=== PATIENT | female | born 1965 | race Caucasian/White ===

== ENCOUNTER 2019-06-20 16:06 | Emergency (ER) | payer MEDICARE, OTHER ==
[~2019-06-20] VITALS: Ht 167.6 cm; Wt 72.6 kg
--- NOTE | 2019-06-20 16:11 | NUR ---
BOBO RA 62 [facility] "STAFF NOTICED HER GOING TO BEDROOM FOR AN EXTENDED PERIOD OF TIME, CAME OUT NOT ACTING NORMAL, ADMITS TO USING METH/HEROIN." TO ER BED 11, HOOKED TO MONITOR, CHANGED TO HOSP GOWN, WARM BLANKET PROVIDED. DR CRUZ AT BEDSIDE
[2019-06-20] MEDS ORDERED: RISP0.2515 PO (16:32)
[2019-06-20] MEDS ORDERED: DIVA-78 PO (16:32)
--- NOTE | 2019-06-20 17:49 | NUR ---
PATIENT ABLE TO AMBULATE GOING TO RESTROOM WITH STEADY GAIT
--- NOTE | 2019-06-20 19:47 | NUR ---
REPORT GIVEN TO NIKOLAY LEIGH FOR HANK
--- NOTE | 2019-06-20 19:47 | NUR ---
REPORT RECEIVED FORM NIKOLAY LEIGH FOR [facility]
--- NOTE | 2019-06-20 19:48 | NUR ---
REPORT RECEIVED FROM LU ELLER FOR HANK
--- NOTE | 2019-06-20 19:56 | NUR ---
[facility] ETA 01:30. TRIP # [id number]
--- NOTE | 2019-06-20 21:44 | NUR ---
Patient is resting comfortably in bed with eyes closed. Easily aroused. VSS
--- NOTE | 2019-06-20 22:18 | NUR ---
REPORT GIVEN TO EMS
--- NOTE | 2019-06-20 22:26 | NUR ---
REPORT GIVEN TO MICA MENDOZA
--- NOTE | 2019-06-20 22:27 | NUR ---
PT STABLE FOR TRANSFER
[2019-06-20 22:35] VITALS: BP 117/67
== END 2019-06-20 22:36 ==
LOC: ER 16:08
DX: F15.10 Other stimulant abuse, uncomplicated (principal); F32.9 Major depressive disorder, single episode, unspecified; Z79.899 Other long term (current) drug therapy

== ENCOUNTER 2021-02-05 12:29 | Emergency (ER) | payer MEDICARE, OTHER ==
[~2021-02-05] VITALS: Ht 172.7 cm; Wt 59.0 kg
[~2021-02-05 12:29] MED LIST: DIVA-78 PO; RISP0.2515 PO
--- NOTE | 2021-02-05 13:20 | NUR ---
[id number], BLUNGER LOADER CALLED 911. PT WAS AGITATED, ANXIOUS S/P METH USEPT IS REQUESTING "DETOX" PATIENT A/OX4, BREATHING EVEN AND UNLABORED, VERBALLY RESPONSIVE, NO DISTRESS NOTED.
--- NOTE | 2021-02-05 13:45 | NUR ---
urine and covid sent to lab.
[2021-02-05 13:54] LABS: BASOPHILS % (AUTO) 0.3 % (0.0-2.0); HEMATOCRIT 34 % (33-45); HEMOGLOBIN 11.8 g/dL (11.5-14.8); LYMPHOCYTES # (AUTO) 1.3 K/uL (0.8-4.8); LYMPHOCYTES % (AUTO) 14.8 % (20.0-44.0); MEAN CORPUSCULAR HGB CONC 35 g/dl (31.0-36.0); MEAN CORPUSCULAR VOLUME 95 fL (82-100); MONOCYTES # (AUTO) 0.5 K/uL (0.1-1.30); MONOCYTES % (AUTO) 6.2 % (2.0-12.0); NEUTROPHILS # (AUTO) 6.7 K/uL (1.8-8.9); NEUTROPHILS % (AUTO) 78.7 % (43.0-81.0); PLATELET COUNT (AUTO) 463 K/uL (150-450); RED BLOOD CELL COUNT(AUTO) 3.54 MIL/uL (4.0-5.2); WHITE BLOOD COUNT (AUTO) 8.5 K/uL (4.3-11.0)
[2021-02-05 14:07] LABS: BILIRUBIN,URINE MODERATE (NEGATIVE); COLOR,URINE AMBER (YELLOW); LEUKOCYTE ESTERASE ,URINE TRACE (NEGATIVE); NITRITE, URINE POSITIVE (NEGATIVE); PROTEIN,URINE 30 mg/dl (NEGATIVE); UGLUCOSE 100 MG/DL mg/dL (NEGATIVE)
[2021-02-05 14:07] LABS: ACETAMINOPHEN 0 ug/ml (10-30); ALANINE AMINOTRANSFERASE 24 U/L (12-78); ALBUMIN 3.8 g/dL (3.4-5.0); ALCOHOL, BLOOD < 3 mg/dL (0-0); ALKALINE PHOSPHATASE 79 U/L (46-116); ASPARTATE AMINOTRANSFERASE 32 U/L (15-37); BILIRUBIN,DIRECT 0.4 mg/dL (0.0-0.2); BILIRUBIN,TOTAL 1.1 mg/dL (0.2-1.0); CALCIUM, SERUM 9.5 mg/dL (8.5-10.1); CARBON DIOXIDE 25 mmol/L (21-32); CHLORIDE 103 mmol/L (98-107); GLUCOSE 113 mg/dL (74-106); POTASSIUM 3.6 mmol/L (3.5-5.1); SODIUM SERUM 141 mmol/L (136-145); TOTAL PROTEIN, SERUM 7.2 g/dL (6.4-8.2); UREA NITROGEN, BLOOD 11 mg/dL (7-18)
[2021-02-05 14:17] LABS: BACTERIA,URINE Many /HPF (None Seen); RBC,URINE 0-2 /HPF (0-2); SQUAMOUS EPITHELIAL CELL,UR Moderate /HPF (None Seen)
[2021-02-05] MEDS ORDERED: DIVALPROEX SODIUM 500 MG TABLET.DR PO ONE ×2 (14:24→15:00)
[2021-02-05] MEDS ORDERED: LORAZEPAM INJ 2 MG/ML VIAL ONE (14:24)
--- NOTE | 2021-02-05 14:24 | NUR ---
PAGED FUR SORTER FOR PT.
--- NOTE | 2021-02-05 14:25 | NUR ---
PATIENT CAME UP TO NURSING STATION AND ASKED FOR A DEPAKOTE, PATIENT IS HYPERVERBAL. PINFORMED DR. ALVAREZ AND RECEIVED ORDER FOR A DEPAKOTE 500MG AND ATIVAN 2MG IM X1.
--- NOTE | 2021-02-05 14:50 | NUR ---
SS note: SS notified Murtaza LEIGH to contact on-call speech and language clinician to evaluate the pt when she is medically clear. Murtaza LEIGH to f/u at a later time.
[2021-02-05] MEDS ORDERED: LORAZEPAM INJ 2 MG/ML VIAL IM ONE (15:00)
[2021-02-05] MEDS ORDERED: diphenhydrAMINE HCL 50 MG/ML VIAL IM ONE (16:00)
[2021-02-05] MEDS ORDERED: diphenhydrAMINE HCL 50 MG/ML VIAL ONE (16:02)
--- NOTE | 2021-02-05 16:29 | NUR ---
PATIENT ASLEEP. BUT EASILY AROUSABLE. NO DISTRESS NOTED.
[2021-02-05] MEDS ORDERED: CEPHALEXIN MONOHYDRATE 500 MG CAPSULE PO SCH (17:00)
--- NOTE | 2021-02-05 17:00 | NUR ---
SS consult: SS requested for pt presenting agitated and anxious. Pt is a 55-year-old, female. SW met with pt at her bedside in the emergency department. Pt presented laying on her bed and was receptive to meeting with SW. Pt appears well-groomed. Pt presents with a labile mood. Pt is irritable, agitated and verbally aggressive. Pt stated that she was previously living at a sober living facility and left because she "had an attitude." Pt was unable to provide SW with a meaningful history. Pt had to be continuously redirected. Pt stated that she has been recently using methamphetamine and "had a couple of drinks." Pt was increasingly fixated on her recent substance use, stating that substances amplify her sx of Bipolar. Pt reported hx of Bipolar Disorder and Depression. Pt stated that she has not recently taken psychiatric medication but took medication months ago. Pt denied hallucinations. Pt denied SI/HI. PLAN: Pt's appears to be unable to care for self and SW to notify ED nursing staff to contact personnel research psychologist for safe D/C planning and possible hold. Addendum: 02/05/21 at 1713 by GAYATHRI GEE late entry for [id number]
--- NOTE | 2021-02-05 17:21 | NUR ---
PATIENT TOO SLEEPY, RISK FOR ASPIRATION, UNABLE TO GIVE PO MEDICATION AT THIS TIME. WILL TRY LATER.
[2021-02-05] MEDS ORDERED: CEPHALEXIN MONOHYDRATE 500 MG CAPSULE PO ONE (17:40)
--- NOTE | 2021-02-05 17:51 | NUR ---
ABLE TO WAKE UP PATIENT TO TAKE MEDICATION. HOB ELEVATED AND TOLERATED PO PILL.
--- NOTE | 2021-02-05 18:35 | NUR ---
Patient resting, no distress noted. Needs attended.
--- NOTE | 2021-02-06 05:30 | NUR ---
pt ok to discharge per dr moseley. Patient discharged to home in stable condition. Written and verbal after care instructions given. Patient verbalizes understanding of instruction.Patient is awake and alert to self, day, and place. pt ambulatory with a steady gait
[2021-02-06 06:09] VITALS: BP 110/65
== END 2021-02-06 06:09 | disposition home or self-care (01) ==
LOC: ER 12:33
DX: F15.10 Other stimulant abuse, uncomplicated (principal); N39.0 Urinary tract infection, site not specified; R45.1 Restlessness and agitation; F31.9 Bipolar disorder, unspecified; F41.9 Anxiety disorder, unspecified; Z20.822 Contact with and (suspected) exposure to COVID-19
CPT/HCPCS: 36415; 80048; 80076; 80143; 80307; 80320; 81001; 85025; 87086; 87426; 96372 ×2; 99284; J1200; J2060; C9803; G0480

== ENCOUNTER 2021-07-14 17:37 | Emergency (ER) | payer MEDICARE, OTHER ==
[~2021-07-14] VITALS: Ht 170.2 cm; Wt 65.8 kg
--- NOTE | 2021-07-14 19:15 | NUR ---
[id number]. TO ER BED 14. AAOX4. NOT IN RESP DISTRESS. AMBUALTORY. BROUGHT IN FOR FEELING DEPRESSED AND ANXIOUS. PER PT SHE DID METH. PT IS REQUESTING TO HAVE HER MEDICATION, DEPAKOTE. PT DENIES ANY SI NOR HI. DENIES HALLUCINATIONS BOTH VISUAL AND AUDITORY. AWAITING MD FOR EVAL.
[2021-07-14] MEDS ORDERED: DIVALPROEX SODIUM 500 MG TABLET.DR PO ONE ×2 (19:30→19:59)
[2021-07-14] MEDS ORDERED: DIVA500T2 PO (19:48)
--- NOTE | 2021-07-15 00:01 | NUR ---
Patient discharged to home in stable condition. Written and verbal after care instructions given. Patient verbalizes understanding of instruction. PT ambulatory with a steady gait
[2021-07-15 01:09] VITALS: BP 138/82
== END 2021-07-15 00:02 | disposition home or self-care (01) ==
LOC: ER 17:40
DX: F30.9 Manic episode, unspecified (principal); F19.229 Other psychoactive substance dependence with intoxication, unspecified; Z79.899 Other long term (current) drug therapy

== ENCOUNTER 2024-02-13 15:50 | Inpatient (IN) | payer MEDICARE, OTHER ==
[~2024-02-13] VITALS: Ht 165.1 cm; Wt 66.7 kg
[~2024-02-13 15:50] MED LIST changes: +DIVA500T2 PO
[2024-02-13 16:51] LABS: BASOPHILS # (AUTO) 0.1 K/uL (0.0-0.2); BASOPHILS % (AUTO) 0.4 % (0.0-2.0); HEMATOCRIT 40 % (33-45); HEMOGLOBIN 13.6 g/dL (11.5-14.8); LYMPHOCYTES # (AUTO) 0.3 K/uL (0.8-4.8); LYMPHOCYTES % (AUTO) 2.4 % (20.0-44.0); MEAN CORPUSCULAR HEMOGLOBIN 33 PG (26.0-33.0); MEAN CORPUSCULAR HGB CONC 34 g/dl (31.0-36.0); MEAN CORPUSCULAR VOLUME 97 fL (82-100); MONOCYTES # (AUTO) 0.5 K/uL (0.1-1.30); MONOCYTES % (AUTO) 3.8 % (2.0-12.0); NEUTROPHILS % (AUTO) 93.4 % (43.0-81.0); PLATELET COUNT (AUTO) 383 K/uL (150-450); RED BLOOD CELL COUNT(AUTO) 4.15 MIL/uL (4.0-5.2); RED CELL DISTRIBUTION WIDTH 13.4 % (11.5-15.0); WHITE BLOOD COUNT (AUTO) 13.9 K/uL (4.3-11.0)
[2024-02-13 17:01] LABS: CALCIUM, SERUM 10.2 mg/dL (8.5-10.1); CARBON DIOXIDE 18 mmol/L (21-32); CHLORIDE 104 mmol/L (98-107); GLUCOSE 134 mg/dL (74-106); SODIUM SERUM 145 mmol/L (136-145); UREA NITROGEN, BLOOD 28 mg/dL (7-18)
[2024-02-13 17:06] LABS: ALANINE AMINOTRANSFERASE 34 U/L (12-78); ALBUMIN 4.8 g/dL (3.4-5.0); ALKALINE PHOSPHATASE 80 U/L (46-116); ASPARTATE AMINOTRANSFERASE 46 U/L (15-37); BILIRUBIN,DIRECT 0.4 mg/dL (0.0-0.2); BILIRUBIN,TOTAL 1.7 mg/dL (0.2-1.0); TOTAL PROTEIN, SERUM 8.8 g/dL (6.4-8.2)
[2024-02-13] MEDS: IV NS 0.9% 1,000 ML BAG IV ONE ×2 (17:07→18:00)
[2024-02-13] MEDS ORDERED: ONDANSETRON HCL/PF 4 MG/2 ML VIAL IVP PRN (19:30)
[2024-02-13] MEDS ORDERED: ACETAMINOPHEN 325 MG TABLET PO PRN (19:30)
[2024-02-13] MEDS ORDERED: Z GUARD REMEDY 4 OZ OINT TP PRN (19:30)
[2024-02-13] MEDS: IV LR 1000 ML 1,000 ML IV PRN (19:39)
[2024-02-13] MEDS: ENOXAPARIN SODIUM 30 MG/0.3 ML DISP.SYRIN SQ SCH (19:40)
[2024-02-13 20:00] VITALS: BP 132/84; TEMP 98.2; O2SAT 98
[2024-02-13] MEDS: LORAZEPAM INJ 2 MG/ML VIAL IV ONE (20:30)
[2024-02-14] MEDS: PANTOPRAZOLE 40 MG TABLET.DR PO SCH (07:39)
[2024-02-15] VITALS (14 sets, daily range): BP systolic 86–121; BP diastolic 64–95; TEMP 98–99.7; O2SAT 95–100
[2024-02-15] MEDS: LORAZEPAM INJ 2 MG/ML VIAL IM ONE (05:07)
[2024-02-15] MEDS: diphenhydrAMINE HCL 50 MG/ML VIAL IM ONE ×2 (05:07→09:26)
[2024-02-15] MEDS: OLANZAPINE 10 MG VIAL IM ONE ×2 (05:07→09:26)
[2024-02-15 08:19] LABS: BILIRUBIN,TOTAL 1.4 mg/dL (0.2-1.0); CALCIUM, SERUM 8.4 mg/dL (8.5-10.1); CREATININE 0.7 mg/dL (0.6-1.3); MAGNESIUM 1.8 mg/dL (1.8-2.4); PHOSPHORUS 2.7 mg/dL (2.5-4.9); POTASSIUM 3.4 mmol/L (3.5-5.1); TOTAL PROTEIN, SERUM 5.9 g/dL (6.4-8.2)
[2024-02-15 10:16] LABS: BASOPHILS % (AUTO) 0.3 % (0.0-2.0); EOSINOPHILS % (AUTO) 0.2 % (0.0-6.0); HEMATOCRIT 32 % (33-45); LYMPHOCYTES # (AUTO) 1.4 K/uL (0.8-4.8); LYMPHOCYTES % (AUTO) 13.7 % (20.0-44.0); MEAN CORPUSCULAR HEMOGLOBIN 32 PG (26.0-33.0); MEAN CORPUSCULAR HGB CONC 34 g/dl (31.0-36.0); MEAN CORPUSCULAR VOLUME 94 fL (82-100); MONOCYTES # (AUTO) 1.1 K/uL (0.1-1.30); MONOCYTES % (AUTO) 10.8 % (2.0-12.0); NEUTROPHILS # (AUTO) 7.4 K/uL (1.8-8.9); RED BLOOD CELL COUNT(AUTO) 3.39 MIL/uL (4.0-5.2); RED CELL DISTRIBUTION WIDTH 13.4 % (11.5-15.0); WHITE BLOOD COUNT (AUTO) 9.9 K/uL (4.3-11.0)
[2024-02-15] MEDS: POTASSIUM CHLORIDE 20 MEQ TAB.PRT.SR PO SCH (11:13)
[2024-02-15] MEDS ORDERED: ENOX30DI SQ (12:10)
[2024-02-15] MEDS ORDERED: LORA-259 PO (12:10)
[2024-02-15] MEDS ORDERED: OLAN5TAB6 PO (12:10)
[2024-02-15] MEDS ORDERED: PANT40TA49 PO (12:10)
[2024-02-15] MEDS ORDERED: DIVA125C2 PO (12:10)
[2024-02-15 12:53] LABS: AMPHETAMINE, URINE POSITIVE (NEGATIVE); BARBITURATE, URINE NEGATIVE (NEGATIVE); BENZODIAZEPINE, URINE NEGATIVE (NEGATIVE)
[2024-02-15 13:06] LABS: CANNABINOID, URINE NEGATIVE (NEGATIVE); COCCAINE, URINE NEGATIVE (NEGATIVE); OPIATE, URINE NEGATIVE (NEGATIVE); PHENCYCLIDINE SCREEN,URINE NEGATIVE (NEGATIVE)
[2024-02-15 14:06] LABS: PLATELET COUNT (AUTO) 197 K/uL (150-450)
[2024-02-15] MEDS: LORAZEPAM 1 MG TABLET PO PRN (14:46)
[2024-02-15] MEDS: OLANZAPINE ZYDIS 5 MG TAB.RAPDIS PO SCH (16:19)
[2024-02-15] MEDS: DIVALPROEX SODIUM 125 MG CAP.SPRINK PO SCH (20:06)
[2024-02-16] VITALS: BP 118/72; TEMP 98.9; O2SAT 100
[2024-02-16 08:08] LABS: PTH, INTACT 25 pg/mL (15-65)
[2024-02-16 13:08] LABS: *SPE A/G RATIO 1.2 (0.7-1.7); *SPE ALBUMIN 3.1 g/dL (2.9-4.4); *SPE ALPHA-1-GLOBULIN 0.2 g/dL (0.0-0.4); *SPE ALPHA-2-GLOBULIN 0.7 g/dL (0.4-1.0); *SPE BETA GLOBULIN 0.9 g/dL (0.7-1.3); *SPE GLOBULIN, TOTAL 2.6 g/dL (2.2-3.9); *SPE M-SPIKE Not Observed g/dL (Not Observed); *SPE PROTEIN TOTAL 5.7 g/dL (6.0-8.5); *SPEGAMMA GLOBULIN 0.8 g/dL (0.4-1.8)
== END 2024-02-16 01:15 | DRG 683 ==
LOC: ER 15:50 → TELE1 18:00 → MEDSG1 02-15 16:23
PROVIDERS: ADMIT Nurse Practitioner Acute Care; ATTEND Nurse Practitioner Acute Care
DX: N17.9 Acute kidney failure, unspecified (principal); E87.20 Acidosis, unspecified; Z59.00 Homelessness unspecified; R65.10 Systemic inflammatory response syndrome (SIRS) of non-infectious origin without acute organ dysfunction; G93.40 Encephalopathy, unspecified; E86.0 Dehydration; F10.90 Alcohol use, unspecified, uncomplicated; Y90.9 Presence of alcohol in blood, level not specified; F32.A Depression, unspecified; Z79.899 Other long term (current) drug therapy; E80.6 Other disorders of bilirubin metabolism; M89.8X9 Other specified disorders of bone, unspecified site; F17.200 Nicotine dependence, unspecified, uncomplicated; D72.829 Elevated white blood cell count, unspecified; R74.01 Elevation of levels of liver transaminase levels; F19.90 Other psychoactive substance use, unspecified, uncomplicated
CPT/HCPCS: 36415; 71045-TC; 80048-TC; 80053-TC; 80076-TC; 82550-TC; 82553; 82962-TC; 83735-TC; 83880; 83970; 84100-TC; 84155; 84165; 84484-TC; 85025-TC; 87081-TC; 98960; A4223; G0378; J1200; J1650; J2060; J3490; J7030; J7120

== ENCOUNTER 2024-02-16 02:25 | Inpatient (IN) | payer MEDICARE, OTHER ==
[~2024-02-16] VITALS: Ht 165.1 cm; Wt 66.7 kg
[~2024-02-16 02:25] MED LIST changes: -DIVA-78 PO; +DIVA125C2 PO; -DIVA500T2 PO; +ENOX30DI SQ; +LORA-259 PO; +OLAN5TAB6 PO; +PANT40TA49 PO; -RISP0.2515 PO
[2024-02-16] MEDS ORDERED: ZOLPIDEM TARTRATE 5 MG TABLET PO PRN (03:00)
[2024-02-16] MEDS ORDERED: MAG HYDROX/AL HYDROX/SIMETH 30 ML UDC PO PRN (03:00)
[2024-02-16] MEDS ORDERED: LORAZEPAM 1 MG TABLET PO PRN (03:00)
[2024-02-16] MEDS ORDERED: LORAZEPAM 0.5 MG TABLET PO PRN (03:00)
[2024-02-16] MEDS ORDERED: MAGNESIUM HYDROXIDE 30 ML UDC PO PRN (03:00)
[2024-02-16 03:22] VITALS: BP 115/70; TEMP 98; O2SAT 98
[2024-02-16] MEDS: BLOOD SUGAR DIAGNOSTIC 1 EACH STRIP IN ONE (03:28)
[2024-02-16 08:00] VITALS: BP 95/66; TEMP 97.9; O2SAT 97
[2024-02-16] MEDS: DIVALPROEX SODIUM 250 MG TABLET.DR PO SCH (10:30)
[2024-02-16 16:00] VITALS: BP 91/56; TEMP 98.6; O2SAT 95
[2024-02-16] MEDS: OLANZAPINE 2.5 MG TABLET PO SCH (16:40)
[2024-02-16 20:00] VITALS: BP 109/69; TEMP 97.8; O2SAT 95
[2024-02-17 07:14] LABS: ALBUMIN 2.5 g/dL (3.4-5.0); BILIRUBIN,TOTAL 0.3 mg/dL (0.2-1.0); CALCIUM, SERUM 8.7 mg/dL (8.5-10.1); CREATININE 0.6 mg/dL (0.6-1.3); POTASSIUM 3.4 mmol/L (3.5-5.1); TOTAL PROTEIN, SERUM 5.4 g/dL (6.4-8.2)
[2024-02-17 07:25] LABS: CHOLESTEROL 96 mg/dL (<200); CREATINE KINASE, TOTAL 3175 U/L (26-192); HDL CHOLESTEROL 38 mg/dL (40-60); LDL 48 mg/dL (0-99); TRIGLYCERIDES 49 mg/dL (30-150)
[2024-02-17 08:00] VITALS: BP 90/60; TEMP 98; O2SAT 95
[2024-02-17] MEDS: POTASSIUM CHLORIDE 20 MEQ TAB.PRT.SR PO ONE (10:13)
[2024-02-17] MEDS: ACETAMINOPHEN 325 MG TABLET PO PRN (10:22)
[2024-02-17 16:00] VITALS: BP 99/63; TEMP 98; O2SAT 94
[2024-02-17 20:09] VITALS: BP 105/66; TEMP 98.1; O2SAT 98
[2024-02-18 07:15] LABS: BASOPHILS % (AUTO) 0.5 % (0.0-2.0); EOSINOPHILS # (AUTO) 0.2 K/uL (0.0-0.7); EOSINOPHILS % (AUTO) 3.4 % (0.0-6.0); HEMATOCRIT 31 % (33-45); HEMOGLOBIN 10.7 g/dL (11.5-14.8); LYMPHOCYTES # (AUTO) 1.4 K/uL (0.8-4.8); LYMPHOCYTES % (AUTO) 31.6 % (20.0-44.0); MEAN CORPUSCULAR HEMOGLOBIN 33 PG (26.0-33.0); MEAN CORPUSCULAR HGB CONC 35 g/dl (31.0-36.0); MEAN CORPUSCULAR VOLUME 95 fL (82-100); MONOCYTES # (AUTO) 0.4 K/uL (0.1-1.30); NEUTROPHILS # (AUTO) 2.5 K/uL (1.8-8.9); NEUTROPHILS % (AUTO) 56.5 % (43.0-81.0); PLATELET COUNT (AUTO) 220 K/uL (150-450); RED BLOOD CELL COUNT(AUTO) 3.28 MIL/uL (4.0-5.2); RED CELL DISTRIBUTION WIDTH 12.9 % (11.5-15.0); WHITE BLOOD COUNT (AUTO) 4.5 K/uL (4.3-11.0)
[2024-02-18 07:44] LABS: ALBUMIN 2.6 g/dL (3.4-5.0); BILIRUBIN,TOTAL 0.5 mg/dL (0.2-1.0); CALCIUM, SERUM 8.4 mg/dL (8.5-10.1); CREATININE 0.6 mg/dL (0.6-1.3); MAGNESIUM 2.1 mg/dL (1.8-2.4); PHOSPHORUS 3.5 mg/dL (2.5-4.9); POTASSIUM 3.6 mmol/L (3.5-5.1); TOTAL PROTEIN, SERUM 5.5 g/dL (6.4-8.2)
[2024-02-18 08:00] VITALS: BP 99/67; TEMP 97.4; O2SAT 97
[2024-02-18 16:00] VITALS: BP 104/70; TEMP 98; O2SAT 98
[2024-02-18 20:33] VITALS: BP 98/54; TEMP 98.4; O2SAT 98
[2024-02-18] MEDS: ZOLPIDEM TARTRATE 5 MG TABLET PO PRN (22:39)
[2024-02-19 08:00] VITALS: BP 114/76; TEMP 97.8; O2SAT 96
[2024-02-19 16:00] VITALS: BP 97/70; TEMP 97.9; O2SAT 98
[2024-02-19 20:17] VITALS: BP 97/70; TEMP 97.9; O2SAT 97
[2024-02-20 08:00] VITALS: BP 91/56; TEMP 97.7; O2SAT 98
[2024-02-20 11:12] VITALS: BP 98/68
[2024-02-20 16:00] VITALS: BP 96/66; TEMP 98; O2SAT 98
[2024-02-20 20:11] VITALS: BP 94/60; TEMP 98.8; O2SAT 99
[2024-02-20 20:45] VITALS: BP 94/60; TEMP 98.8; O2SAT 99
[2024-02-21 08:00] VITALS: BP 100/64; TEMP 98.4; O2SAT 97
[2024-02-21 16:00] VITALS: BP 101/69; TEMP 97.9; O2SAT 97
[2024-02-21 20:00] VITALS: BP 89/64; TEMP 98.1; O2SAT 98
[2024-02-22 06:56] VITALS: BP 108/70; TEMP 98.8; O2SAT 99
[2024-02-22 08:00] VITALS: BP 87/59; TEMP 97.9; O2SAT 96
[2024-02-22] MEDS: DIVALPROEX SODIUM 250 MG TABLET.DR PO SCH (12:46)
[2024-02-22 16:00] VITALS: BP 98/64; TEMP 98.2; O2SAT 99
[2024-02-23 08:00] VITALS: BP 103/66; TEMP 98.2; O2SAT 97
[2024-02-23 16:00] VITALS: BP 101/66; TEMP 97.9; O2SAT 99
[2024-02-23 20:00] VITALS: BP 89/63; TEMP 97.9; O2SAT 99
[2024-02-23 21:39] VITALS: BP 105/67
[2024-02-24 08:00] VITALS: BP 102/66; TEMP 97.8; O2SAT 98
[2024-02-24 16:00] VITALS: BP 147/95; TEMP 97.9; O2SAT 100
[2024-02-24 21:08] VITALS: BP 124/66; TEMP 97.9; O2SAT 98
[2024-02-25 08:00] VITALS: BP 118/92; TEMP 97.9; O2SAT 97
[2024-02-25 16:00] VITALS: BP 99/67; TEMP 97.8; O2SAT 100
[2024-02-25 20:38] VITALS: BP 92/60; TEMP 97.9; O2SAT 97
[2024-02-26 08:00] VITALS: BP 104/64; TEMP 98.4; O2SAT 97
[2024-02-26 16:00] VITALS: BP 116/74; TEMP 98.4; O2SAT 97
[2024-02-26 20:37] VITALS: BP 91/61; TEMP 98; O2SAT 96
[2024-02-27 08:00] VITALS: BP 106/71; TEMP 97.7; O2SAT 98
[2024-02-27 16:00] VITALS: BP 108/69; TEMP 97.9; O2SAT 99
[2024-02-27 20:27] VITALS: BP 91/62; TEMP 98.1; O2SAT 97
[2024-02-28 08:00] VITALS: BP 103/80; TEMP 97.8; O2SAT 98
[2024-02-28 16:00] VITALS: BP 95/58; TEMP 97.8; O2SAT 98
[2024-02-28 20:44] VITALS: BP 97/62; TEMP 98.1; O2SAT 98
[2024-02-29 08:00] VITALS: BP 104/61; TEMP 97.8; O2SAT 97
== END 2024-02-29 13:40 | DRG 885 ==
LOC: GPS 02:25
PROVIDERS: ADMIT Psychiatry & Neurology Psychiatry; ATTEND Internal Medicine
DX: F31.9 Bipolar disorder, unspecified (principal); N17.9 Acute kidney failure, unspecified; G92.8 Other toxic encephalopathy; M62.82 Rhabdomyolysis; E87.20 Acidosis, unspecified; Z59.00 Homelessness unspecified; R65.10 Systemic inflammatory response syndrome (SIRS) of non-infectious origin without acute organ dysfunction; F29 Unspecified psychosis not due to a substance or known physiological condition; Z20.822 Contact with and (suspected) exposure to COVID-19; F19.10 Other psychoactive substance abuse, uncomplicated; E80.6 Other disorders of bilirubin metabolism; F17.200 Nicotine dependence, unspecified, uncomplicated; Z79.899 Other long term (current) drug therapy; Z79.01 Long term (current) use of anticoagulants; E86.0 Dehydration; F10.10 Alcohol abuse, uncomplicated; Y90.9 Presence of alcohol in blood, level not specified; M89.8X9 Other specified disorders of bone, unspecified site; D64.9 Anemia, unspecified; R74.01 Elevation of levels of liver transaminase levels
CPT/HCPCS: 36415; 80053-TC; 80061-TC; 80164-TC; 82550-TC; 82553; 83735-TC; 84100-TC; 85025-TC; 97112-TC; 97116-TC; 97164; 97530-TC